=== PATIENT | male | born 1945 | race Two or more races ===

== ENCOUNTER 2016-08-02 18:49 | Inpatient (IN) | payer OTHER ==
[2016-08-02] MEDS ORDERED: IOPAMIDOL 370 (76%) 100 ML VIAL IV ONE (18:50)
[2016-08-02] MEDS ORDERED: IPRATROPIUM BROMIDE 0.5 MG/2.5 ML DOSE ONE (19:15)
[2016-08-02] MEDS ORDERED: ALBUTEROL SULFATE 5MG/ML INHALANT 20 ML BOT ONE (19:15)
[2016-08-02 19:30] LABS: ABSOLUTE NEUTROPHIL COUNT 4.6 K/mm3 (1.8-7.7); BASO % 0.2 % (0.2-1.0); EOS % 0.2 % (0.9-2.9); HEMATOCRIT 21.7 % (32.0-52.0); HEMOGLOBIN 6.6 gm/l (14.0-18.0); IMM NEUT% 0.6 % (0-1); LYMPH # 1.1 (1.0-4.8); LYMPH % 17.9 % (15-45); MEAN CELL VOLUME 82.5 fl (80.0-94.0); MEAN CORPUSCULAR HEMOGLOBIN 25.1 pg (27.0-31.0); MEAN CORPUSCULAR HGB CONC 30.4 g/dl (33.0-37.0); MEAN PLATELET VOLUME 10.7 fl (7.4-10.4); MONO # 0.5 (0.0-0.8); MONO % 8.5 % (4-12); NEUT % 72.6 % (43-75); PLATELET COUNT 271 K/mm3 (130-400); RED CELL DISTRIBUTION WIDTH 14.7 % (11.5-14.5)
[2016-08-02 19:49] LABS: ALB/GLOB RATIO 1.2 (>1.0); ALBUMIN 3.8 gm/dL (3.5-5.7); CALCIUM 9.3 mg/dL (8.6-10.3)
[2016-08-02 19:54] LABS: D-DIMER 0.92 mg/L FEU (0.20-0.50); INR 1.03; PROTHROMBIN TIME 10.8 SECONDS (9.3-11.4)
--- NOTE | 2016-08-02 20:03 | RAD ---
08/02/2016 7:58 PM CHEST-AP BEDSIDE History: Respiratory distress. Comparison: None Findings: Single AP view of the chest is obtained. The lungs are clear with out effusion or pneumothorax. The cardiomediastinal silhouette is unremarkable.. The osseous structures are intact.. Study is limited by patient breathing motion artifact. IMPRESSION: No acute intrathoracic process.
[2016-08-02] MEDS ORDERED: PANTOPRAZOLE SODIUM 40 MG VIAL IV ONE (20:04)
[2016-08-02 20:52] LABS: PLATELET ESTIMATE NORMAL (NORMAL)
[2016-08-02 20:53] LABS: ANISOCYTOSIS 1+
--- NOTE | 2016-08-02 20:58 | CT ---
INDICATION: Dyspnea, elevated d-dimer. COMPARISON: Plain films earlier on the same day. TECHNIQUE: Helical scan mode CT of the Thorax with 2 mm collimated images were obtained after uneventful intravenous contrast administration of 80 of Isovue-370. Sagittal and coronal reformations with high resolution lung algorithm images were also created at this time. Maximal intensity projection images and 3-D volumetric sequences were created at a separate, dedicated workstation. DLP: 1263.4 FINDINGS: There may be a pulmonary arterial filling defects. Within the anterior segment left lower lung on axial image 55 possible nonocclusive thrombus is present. Findings may be artifactual in nature as patient breathing motion artifact is present. No other definite areas of pulmonary embolism are noted. Dependent and atelectatic changes are identified. No pleural effusion. The central airways are widely patent. There is no axillary, mediastinal or hilar adenopathy. The heart and great vessels opacify normally. Limited evaluation of the upper abdomen demonstrates no gross abnormalities. Review of bone windows demonstrates no osteoblastic or lytic lesions. Multilevel degenerative changes are present. IMPRESSION: 1. Possible nonocclusive thrombus is identified within the left lower lobe anterior segment. Breathing motion artifact is noted which may account for this appearance. No other evidence of emboli. 2. Other incidental findings as above. Findings were called to Dr. Hatch at approximately 2053 hours on 08/02/2016.
[2016-08-02] MEDS ORDERED: SODIUM CHLORIDE 0.9% 500 ML ONE (21:14)
[2016-08-02] MEDS ORDERED: BISACODYL 5 MG TABLET.EC PO PRN (22:25)
[2016-08-02] MEDS ORDERED: BISACODYL 10 MG SUP PR PRN (22:25)
[2016-08-02] MEDS ORDERED: MAGNESIUM HYDROXIDE 30 ML UDCUP PO PRN (22:25)
[2016-08-02] MEDS ORDERED: MENTHOL/CETYLPYRD 1 EACH LOZENGE PO PRN (22:25)
[2016-08-02] MEDS ORDERED: SODIUM CHLORIDE 0.9% 100 ML IV PRN (22:25)
[2016-08-02] MEDS ORDERED: BLISTEX LIPSTICK 1 EACH TP PRN (22:25)
[2016-08-02 23:05] VITALS: BMI 52.9
[2016-08-02] MEDS: ACETAMINOPHEN 325 MG TABLET PO PRN (23:18)
[2016-08-02 23:58] LABS: FERRITIN 6.7 ng/mL (23.9-336.2)
[2016-08-03 00:03] LABS: FOLIC ACID 9.3 ng/mL (>5.9)
[2016-08-03] MEDS ORDERED: BLOOD Y PLUMSET W/CASSETTE ONE (02:30)
[2016-08-03] MEDS ORDERED: SODIUM CHLORIDE 0.9% 250 ML IV ONE (02:31)
--- NOTE | 2016-08-03 07:59 | HP ---
Carlo Sanchez [id number] : 1945 DATE OF ADMISSION: 08/02/2016 IDENTIFICATION: Mr. Sanchez is a 71-year-old followed at the [facility]. CHIEF COMPLAINT: Shortness of breath. HISTORY OF PRESENT ILLNESS: The patient is a vague historian. It is difficult to get definitive answers, but he is reporting at least a few months worth of shortness of breath. He does report associated coughing which is nonproductive and increasing weakness. He feels faint and has had hot flushes and today complains of a headache. He was seen at the [facility] on , July 29 and prescribed amoxicillin, nasal Fluticasone, and prednisone for a presumed upper respiratory infection, but this did not help his symptoms. With persistent symptoms he came to [facility] Room today where he was found to be profoundly anemic. He has been started on blood transfusion and referred to the hospitalist service. He does have a diagnosis of prostate cancer and was getting chemotherapy starting last February and his last treatment was May 07. He does not know if his treatment is completed or if he is going to receive more treatment. He had a PSA test two weeks ago, but does not know if his hemoglobin was checked at that time. REVIEW OF SYSTEMS: HEENT: Reports headache and faintness, no loss of consciousness. States that his right ear has hearing loss, tinnitus, and that they told him the eardrum was abnormal on . Respiratory: Dyspnea and nonproductive cough. Cardiac: Denies chest pain or palpitations. Gastrointestinal: Denies nausea, vomiting, or reflux symptoms. Denies diarrhea, constipation, or melana. He does have frequent bright red blood with bowel movements which he states is due to hemorrhoids. Genitourinary: He has hesitancy and frequency, no dysuria. Musculoskeletal: Generalized weakness as well as tingling in his legs and soreness all over. Constitutional: Hot flushes. No documented fever. PAST MEDICAL HISTORY: 1. Prostate cancer diagnosed last fall, as above he was receiving chemotherapy February, March, and April, but his last treatment was May 07. 2. Morbid obesity with obesity hypoventilation and obstructive sleep apnea treated with CPAP. 3. Hypertension. 4. Hearing loss. 5. Depression. 6. Restless leg syndrome. PAST SURGICAL HISTORY: Lumbar spinal surgery and hernia repair done in 1973. ALLERGIES: None known. MEDICATIONS: We are awaiting his collection from home and those will be entered into [employer]. 1. It does appear that he was prescribed amoxicillin, Fluticasone nasal spray, and prednisone just last . 2. He takes Alfuzosin. 3. Diltiazem. 4. Calcium. 5. B12. 6. Fluoxetine. HABITS: He smoked as a young man, but quit in the , rarely drinks alcohol, denies other drug use. SOCIAL HISTORY: He is disabled. Lives with his mother here in [place]. His son and daughter -in-law are supportive and were here with him this evening, but have gone home to get his CPAP and medication bottles. FAMILY HISTORY: His father of colon and stomach cancer. PHYSICAL EXAMINATION: GENERAL: This is a morbidly obese, fatigued, and ill appearing 71-year-old. VITAL SIGNS: Temperature 98.1 degrees Fahrenheit, blood pressure 113/56, pulse 56, respiratory rate 22, oxygen saturation is 100% on room air. HEENT: Pupils equal, round, and reactive. Extraocular muscles intact. Tympanic membranes are normal with good light reflex bilaterally. Oropharynx is somewhat dry. CHEST: Clear to auscultation. HEART: Regular, bradycardic. ABDOMEN: Massively obese, soft, nontender. No organomegaly appreciated. EXTREMITIES: 1+ pitting edema with good peripheral pulses. NEUROLOGIC: He is alert, oriented, and does not have focal deficits, but does seem fatigued and slow to respond to questions. RECTAL: Done in the emergency department by Dr. Hatch was Heme negative. LABORATORIES: White blood cell count 6.3, hemoglobin and hematocrit critically low at 6.6 and 21.7. Indices are microcytic, platelet count 271. INR 1.03. D-dimer elevated at 0.92. Sodium 137, potassium 3.7, chloride 106, CO2 21, BUN 16, creatinine 0.7, glucose 139. Liver enzymes are normal. Troponin I less than 0.01. B-type natiuretic peptide 99. DIAGNOSTICS: Chest x-ray is normal. CT angiogram of the chest was inadequate due to breathing artifact giving the appearance of a possible nonocclusive thrombus in the left lower lobe, but this is more likely to represent an artifact. EKG sinus bradycardia. ASSESSMENT: Mr. Sanchez is a 71-year-old with history of prostate cancer and recent chemotherapy who presents with critical anemia. He has underlying morbid obesity and hypoventilation, depression, and hypertension. PLAN: 1. Admit to med/surg. 2. Transfuse 3 units packed red blood cells. 3. Continue Alfuzosin and diltiazem, but will discontinue the amoxicillin, Fluticasone, and prednisone that were recently prescribed. 4. Anemia workup. 5. Full code status. 6. Venous thromboembolism prophylaxis with mechanical means. I do not want to anticoagulate him with his anemia. I do not think that he currently has pulmonary embolism or other venous thrombosis, just an artifact on the CT scan. 7. [facility] with [facility] for [facility] cancer, however, the anemia may be due to chemotherapy and may in fact be the reason that his chemotherapy was stopped in April although, that is unclear from the patient's vague history. JOB: [id number]
[2016-08-03 08:09] LABS: HEMATOCRIT 27.7 % (32.0-52.0); HEMOGLOBIN 8.7 gm/l (14.0-18.0); MEAN CELL VOLUME 81.7 fl (80.0-94.0); MEAN CORPUSCULAR HEMOGLOBIN 25.7 pg (27.0-31.0); MEAN CORPUSCULAR HGB CONC 31.4 g/dl (33.0-37.0); RED CELL DISTRIBUTION WIDTH 14.6 % (11.5-14.5)
[2016-08-03] MEDS: GUAIFENESIN/CODEINE 100/10 MG (5 ML UDCUP) PO PRN ×4 (08:31→20:53)
[2016-08-03] MEDS: ACETAMINOPHEN 325 MG TABLET PO PRN ×2 (08:35→17:16)
[2016-08-03 08:49] LABS: CALCIUM 9.1 mg/dL (8.6-10.3)
[2016-08-03] MEDS ORDERED: PANTOPRAZOLE 40 MG TABLET DR PO SCH (09:00)
[2016-08-03] MEDS ORDERED: ALFUZOSIN HCL 10 MG TAB.ER.24H PO SCH (09:00)
[2016-08-03] MEDS: DILTIAZEM HCL CD 240 MG CAPSULE PO SCH (09:12)
[2016-08-03] MEDS: FLUOXETINE HCL 20 MG CAPSULE PO SCH (09:12)
[2016-08-03] MEDS: DOCUSATE SODIUM 100 MG CAPSULE PO SCH ×2 (09:13→20:47)
--- NOTE | 2016-08-03 14:39 | PDOC43 ---
- Subjective Chief Complaint: weakness, cough Feels better today. Still with a bit of a cough. Some mid-epigastric abd pain. No N/V. Weakness improved. Guiac negative. Subjective: Reports Tolerating Diet Well, Reports Adequate Oral Intake, Reports Bowel Movement, Reports Cough, Reports Abdominal Pain, Denies Shortness of Breath, Denies Chest Pain, Denies Nausea, Denies Vomiting, Denies Fever, Denies Chills - Objective Vital Signs Temperature 97.6 F 08/03/16 12:00 Pulse Rate 62 08/03/16 12:00 Respiratory Rate 22 08/03/16 12:00 Blood Pressure 111/59 08/03/16 12:00 O2 Saturation by Pulse Oximetry 99 08/03/16 12:00 Oxygen Delivery Method Room Air Oxygen Flow Rate 0 Intake and Output 08/02/16 08/03/16 08/04/16 06:59 06:59 06:59 Intake Total 1095 Balance 1095 General: Alert, Oriented x3, Cooperative, No Acute Distress HEENT: Atraumatic Lungs: Clear to Auscultation Bilaterally Cardiovascular: Regular Rate and Rhythm Abdomen: Soft, Tenderness (Minimal mid-epigastric tenderness), Normal Bowel Sounds, No Rebounding, No Involuntary Guarding Laboratory 08/03/16 07:49 08/03/16 07:49 08/02/16 19:05 Iron 14 L Ferritin 6.7 L Vitamin B12 618 Folic Acid 9.3 TSH 1.97 Current Medications: Current meds reviewed in EMR. - Problems: Assessment/Plan (1) Anemia Qualifiers: Anemia type: iron deficiency Status: AcuteAssessment/Plan: Significant anemia apparently acute. Baseline H&H = 15.1 and 44.7 [facility]. Lab testing c/w Fe deficient. Guiac negative here. Last colonoscopy just 2.5 months ago on 05/14/16 with 3 polyps removed, large ext hemm noted, and no evidence of radiation procatitis. Does have some minimal mid-epigastric tenderness and was just started on prednisone last week-- strongly suspect upper GIB. Discussed with GI- will plan on EGD in AM. Recheck H&H tonight and consider further transfusion if necessary. Increase PPI tx to bid. (2) Weakness Status: AcuteAssessment/Plan: Improved s/p transfusion. (3) Cough Status: AcuteAssessment/Plan: Cough x several weeks. No history of COPD/RAD as per pt but was rx'ed prednisone last week. Elevated d-dimer but Chest CTA with significant motion artifact- possible PE noted but felt more likely to be artifact. Will check LE US to further eval for DVT/PE though seems unlikely. Cannot anticoagulate now anyway d/t possible GIB. Follow closely- may need to repeat CTA if still uncertainty. (4) BETZY (obstructive sleep apnea) Status: ChronicAssessment/Plan: At baseline. Con't usual CPAP. (5) Prostate cancer Status: ChronicAssessment/Plan: Recently completed (04/2016) tx with Leuprolide. Appears at baseline. Check PSA. (6) HTN (hypertension), benign Status: ChronicAssessment/Plan: Stable. Con't usual dilt. VTE Prophylaxis: Mechanical only. Disposition: Unknown.
[2016-08-03] MEDS: PANTOPRAZOLE SODIUM 40 MG VIAL IV SCH (14:50)
--- NOTE | 2016-08-03 16:14 | US ---
DUPLEX ULTRASOUND, BILATERAL EXTREMITIES:DUPLEX SCAN VEIN EXT BRIGIDA CLINICAL INDICATION: Elevated d-dimer. COMPARISON:none TECHNIQUE: Both grayscale imaging and Doppler interrogation with spectral analysis and color flow was performed. Ultrasound compression and flow with augmentation was also utilized, and the common femoral vein to the posterior tibial and peroneal veins were assessed. FINDINGS: Right Lower Extremity:Appropriate compressibility and flow is demonstrated in the common femoral, superficial femoral, popliteal, and peroneal and posterior tibial veins proximally. Flow with augmentation was also elicited. Left Lower Extremity:Appropriate compressibility and flow is demonstrated in the common femoral, superficial femoral, popliteal, and peroneal and posterior tibial veins proximally. Flow with augmentation was also elicited. IMPRESSION: Normal bilateral lower extremity venous Doppler examination.
[2016-08-03 17:03] LABS: HEMATOCRIT 28.4 % (32.0-52.0); HEMOGLOBIN 8.7 gm/l (14.0-18.0)
[2016-08-04] MEDS: GUAIFENESIN/CODEINE 100/10 MG (5 ML UDCUP) PO PRN ×4 (02:03→20:13)
[2016-08-04] MEDS: PANTOPRAZOLE SODIUM 40 MG VIAL IV SCH ×2 (02:03→14:00)
[2016-08-04 05:56] LABS: HEMATOCRIT 28.2 % (32.0-52.0); HEMOGLOBIN 8.6 gm/l (14.0-18.0); MEAN CELL VOLUME 81.7 fl (80.0-94.0); MEAN CORPUSCULAR HEMOGLOBIN 24.9 pg (27.0-31.0); MEAN CORPUSCULAR HGB CONC 30.5 g/dl (33.0-37.0)
[2016-08-04 06:15] LABS: CALCIUM 8.9 mg/dL (8.6-10.3)
[2016-08-04] MEDS ORDERED: PROPOFOL 20 ML IV ONE (07:43)
[2016-08-04] MEDS: FLUOXETINE HCL 20 MG CAPSULE PO SCH (09:08)
[2016-08-04] MEDS: DOCUSATE SODIUM 100 MG CAPSULE PO SCH ×2 (09:08→20:13)
[2016-08-04] MEDS: DILTIAZEM HCL CD 240 MG CAPSULE PO SCH (09:08)
--- NOTE | 2016-08-04 11:07 | PDOC43 ---
- Subjective Chief Complaint: weakness, cough Feeling better. Cough improved. Weakness improved. EGD this AM with [facility] polyp found- plan repeat EGD in OR under general anesthesia in AM. Subjective: Reports Tolerating Diet Well, Denies Shortness of Breath, Denies Chest Pain, Denies Abdominal Pain, Denies Nausea, Denies Vomiting, Denies Fever , Denies Chills - Objective Vital Signs Temperature 97.8 F 08/04/16 08:00 Pulse Rate 64 08/04/16 08:00 Respiratory Rate 18 08/04/16 08:00 Blood Pressure 156/100 08/04/16 08:00 O2 Saturation by Pulse Oximetry 94 08/04/16 08:00 Oxygen Delivery Method Room Air Oxygen Flow Rate 0 Intake and Output 08/03/16 08/04/16 08/05/16 06:59 06:59 06:59 Intake Total 1095 1200 Output Total 3650 450 Balance 1095 -2450 -450 General: Alert, Oriented x3, Cooperative, No Acute Distress Lungs: Clear to Auscultation Bilaterally Cardiovascular: Regular Rate and Rhythm Abdomen: Soft, Normal Bowel Sounds, Non-Distended, No Rebounding, No Involuntary Guarding Laboratory 08/04/16 05:30 08/04/16 05:30 Current Medications: Current meds reviewed in EMR. - Problems: Assessment/Plan (1) Anemia Qualifiers: Anemia type: iron deficiency Status: AcuteAssessment/Plan: Significant anemia apparently acute. Baseline H&H = 15.1 and 44.7 [facility]. Lab testing c/w Fe deficient. Guiac negative here. EGD this AM with large friable polyp found at [facility]. Presumed etiology of bleeding/anemia. Plan is to repeat EGD with [facility] in OR under general anesthesia in AM. Last colonoscopy just 2.5 months ago on 05/14/16 with 3 polyps removed, large ext hemm noted, and no evidence of radiation procatitis. H&H stable. Con't PPI tx bid. (2) Weakness Status: AcuteAssessment/Plan: Improved s/p transfusion. (3) Cough Status: AcuteAssessment/Plan: Cough x several weeks. No history of COPD/RAD as per pt but was rx'ed prednisone last week. Elevated d-dimer but Chest CTA with significant motion artifact- possible PE noted but felt more likely to be artifact. LE US 08/03 negative for DVT. PE appears highly unlikely, and cannot anticoagulate now anyway d/t possible GIB. Follow closely- may need to repeat CTA if still uncertainty. (4) BETZY (obstructive sleep apnea) Status: ChronicAssessment/Plan: At baseline. Con't usual CPAP. (5) Prostate cancer Status: ChronicAssessment/Plan: Recently completed (04/2016) tx with Leuprolide. Appears at baseline. Check PSA. (6) HTN (hypertension), benign Status: ChronicAssessment/Plan: Stable. Con't usual dilt. VTE Prophylaxis: Mechanical only. Disposition: Anticipate d/c 1-2 days.
[2016-08-04 13:22] LABS: HELICOBACTER PYLORII DETECTION NEGATIVE (NEGATIVE)
[2016-08-04] MEDS: DIPHENHYDRAMINE HCL 25 MG CAPSULE PO PRN (22:12)
[2016-08-05] MEDS ORDERED: PUMP TUBING ONE (00:13)
[2016-08-05] MEDS: LACTATED RINGERS 1,000 ML IV SCH ×3 (00:21→03:30)
[2016-08-05] MEDS: DIPHENHYDRAMINE HCL 25 MG CAPSULE PO PRN (00:22)
[2016-08-05] MEDS: PANTOPRAZOLE SODIUM 40 MG VIAL IV SCH (03:29)
[2016-08-05] MEDS ORDERED: LACTATED RINGERS 1,000 ML ONE (05:43)
[2016-08-05] MEDS ORDERED: IV START KIT ONE (05:43)
[2016-08-05 05:53] LABS: HEMATOCRIT 28.1 % (32.0-52.0); HEMOGLOBIN 8.6 gm/l (14.0-18.0); MEAN CELL VOLUME 83.1 fl (80.0-94.0); MEAN CORPUSCULAR HEMOGLOBIN 25.4 pg (27.0-31.0); MEAN CORPUSCULAR HGB CONC 30.6 g/dl (33.0-37.0)
[2016-08-05] MEDS ORDERED: SUCCINYLCHOLINE CHL 20 MG/ML DOSE ONE (06:55)
[2016-08-05] MEDS ORDERED: PROPOFOL 20 ML IV ONE (06:55)
[2016-08-05] MEDS ORDERED: MIDAZOLAM HCL 1 MG/ML 2ML VIAL ONE (06:55)
[2016-08-05] MEDS ORDERED: ALBUTEROL SULFATE MDI 60 PUFFS/INHALER IH ONE (07:34)
[2016-08-05] MEDS ORDERED: HYDROMORPHONE HCL 1 MG/ML SYRINGE IV PRN (07:54)
[2016-08-05] MEDS ORDERED: NALOXONE HCL 0.4 MG/ML VIAL IV PRN (07:54)
[2016-08-05] MEDS ORDERED: HYDRALAZINE HCL 20 MG/1 ML VIAL IV PRN (07:54)
[2016-08-05] MEDS ORDERED: MEPERIDINE 25 MG/ML SYRINGE IV PRN (07:54)
[2016-08-05] MEDS ORDERED: LABETALOL HCL 5 MG/ML 20ML VIAL IV PRN (07:54)
[2016-08-05] MEDS ORDERED: PROMETHAZINE HCL 25 MG/ML VIAL IM PRN (07:54)
[2016-08-05] MEDS ORDERED: ONDANSETRON 4 MG/2ML 2 ML VIAL IV PRN (07:54)
[2016-08-05] MEDS ORDERED: ATROPINE SULFATE 0.4 MG/1 ML VIAL IV PRN (07:54)
[2016-08-05] MEDS ORDERED: FENTANYL 100 MCG/2 ML VIAL IV PRN (07:54)
[2016-08-05] MEDS ORDERED: LACTATED RINGERS 1,000 ML IV SCH (08:00)
[2016-08-05] MEDS: DILTIAZEM HCL CD 240 MG CAPSULE PO SCH (11:36)
[2016-08-05] MEDS: GUAIFENESIN/CODEINE 100/10 MG (5 ML UDCUP) PO PRN (11:36)
[2016-08-05] MEDS: FLUOXETINE HCL 20 MG CAPSULE PO SCH (11:36)
[2016-08-05] MEDS: ACETAMINOPHEN 325 MG TABLET PO PRN (11:36)
[2016-08-05] MEDS: DOCUSATE SODIUM 100 MG CAPSULE PO SCH (11:37)
[2016-08-05] MEDS ORDERED: IRON SUCROSE COMPLEX 200 MG in SODIUM CHLORIDE 0.9% 100 ML IV ONE (11:45)
[2016-08-05 12:01] VITALS: BP 139/70
--- NOTE | 2016-08-05 13:34 | DS ---
Carlo Sanchez [id number] DATE OF ADMISSION: 08/02/2016 DATE OF DISCHARGE: 08/05/2016 DISCHARGE DIAGNOSES: 1. Severe iron deficiency anemia presumably due to chronic gastrointestinal blood loss. 2. Morbid obesity with a body mass index of 53. 3. Obstructive sleep apnea with chronic respiratory failure on CPAP therapy. 4. History of prostate cancer currently undergoing chemotherapy with hormonal blocking agents. 5. Shortness of breath associated with his anemia and possibly due toa viral upper respiratory infection. 6. Chronic depression. 7. Chronic essential hypertension. 8. Generalized weakness. 9. Restless leg syndrome probably due to iron deficiency. CONSULTATIONS OBTAINED DURING HOSPITALIZATION: Included a gastrointestinal consultation with Dr. Luciano Varela on 08/04/2016. PROCEDURES PERFORMED DURING THE HOSPITALIZATION: Included transfusion of 3 units of packed red blood cells between August 02 and August 03. Also an upper endoscopy was performed on 08/04/2016 for diagnostic purposes showing a large pedunculated esophageal polyp and gastritis with duodenitis. No peptic ulcer disease was identified. He had another upper endoscopy performed on August 05, this time with polypectomy performed under general anesthesia. Pathology is pending. TO SUMMARIZE THE ADMISSION AND HOSPITAL COURSE: The patient is a 71-year-old male followed by the [facility] who presented with complaints of dyspnea on exertion, cough, and shortness of breath with weakness. He had recently been treated at the [place] with amoxicillin and prednisone without significant improvement. He was evaluated in the emergency department and was hemodynamically stable. Chest x-ray was normal. CT angiogram of the chest did not show any infiltrates. B-type natiuretic peptide was normal at 99. He had a CBC showing a white count of 6.3, hemoglobin was critically low at 6.6 with a hematocrit of 21.7. His other laboratory studies were unremarkable. His mean corpuscular volume was normal at 82.5. He had iron studies performed showing a serum iron level of 14, a ferritin level of 6.7 consistent with iron deficiency. B12 level was normal at 618. Folic acid level was normal at 9.3. A TSH level was normal at 1.97. He was admitted to the hospitalist service. He was transfused. He had improvement in his symptoms following the transfusion. He had the consultation with GI as I mentioned above. His hemoglobin's were stable at the time of his discharge. He did have evidence of hemoccult positive stools during his stay, felt to be secondary to gastritis. His H-pylori test were negative and he was felt to be medically stable for discharge on August 05. PHYSICAL EXAMINATION: VITAL SIGNS: His discharge vitals showed a temperature of 98.2, pulse 55, blood pressure 113/85, respirations 16, oxygen saturation of 95% on room air. Body mass index is over 40 as I mentioned above. GENERAL: This is an obese male in no acute distress. HEENT: Unremarkable. Moist pink oral mucosa is noted. LUNGS: Clear to auscultation bilaterally. CARDIOVASCULAR: Reveals a regular rate and rhythm without a murmur. ABDOMEN: Obese, soft, nontender, nondistended with positive bowel sounds. EXTREMITIES: No peripheral edema. LABORATORY STUDIES: Done on the day of discharge included a CBC with a white count of 5.9, hemoglobin is stable at 8.6, platelet count is 246,000. Chemistry profile performed on August 04 showed a creatinine of 0.8, normal electrolytes. DISPOSITION: Good. DISCHARGE MEDICATIONS: He is prescribed: 1. Iron sulfate 325 mg every morning. 2. Prilosec 20 mg every evening at bedtime. He will resume his previous home medications which include: 1. Fluticasone propionate nasal spray two sprays in each nostril daily. 2. Uroxatral 10 mg daily. 3. Prozac 40 mg daily. 4. Cardizem CD 240 mg daily. 5. Vitamin B12 1000 mcg by mouth daily. 6. Calcium carbonate 1300 mg every morning. 7. He did get a dose of iron sucrose 200 mg intravenously prior to discharge. FOLLOW UP: Instructed to follow up with provider at the [place] [facility] sometime in the next two weeks. Dr. Luciano Varela will follow up with the patient regarding the polypectomy results and arrange for follow up as needed. JOB: [id number] CC: Dr. Luciano Varela [facility]
--- NOTE | 2016-08-06 15:09 | SURGPATH ---
[facility] [address] [place] [id number] Patient Name: GILMA KENNEDY MR#: [id number] : 1945 Gender: M Specimen #: [id number] Collected: 08/04/2016 Received: 08/05/2016 Reported: 08/06/2016 Submitting Phys: MARY GUAN Copy To Phys: GILMA LAY [facility] Addendum Present Clinical History / Pre-Operative Diagnosis: ANEMIA; RULE OUT GASTRITIS Specimen Source / Surgical Procedure Performed: ANTRAL Interpretation: ANTRUM, BIOPSIES: - CHRONIC ACTIVE GASTRITIS - NEGATIVE FOR HELICOBACTER BY IMMUNOSTAIN Electronically Signed Out Anish Mcfarland M.D. Addendum Date Reported: 09/07/2016 Signed Out Addendum Diagnosis CASE ADDITIONALLY REVIEWED --- WITH AGREEMENT OF THE DIAGNOSTIC FINDINGS. STOMACH, ANTRUM, BIOPSY: - GASTRIC OXYNTIC-TYPE AND ANTRAL-TYPE MUCOSA WITH MILDLY ACTIVE CHRONIC GASTRITIS. - NO HELICOBACTER PYLORI ORGANISMS IDENTIFIED BY IHC. Comment: All controls show appropriate reactivity. The outside diagnosis is confirmed. Performed by: Dr. Giselle Quesada at [facility]; [place] [id number] Please see complete report under separate cover. Complete report on file. aje/09/07/2016 Electronically Signed Out By Precious Harrison M.D. Anish Mcfarland M.D. Gross Description: The specimen is received in a formalin filled container labeled with the patient's name and "antral biopsy". Two cooney-reyna biopsies are 0.1 and 0.2 cm. Totally embedded in one cassette. Vito Lopes Microscopic Description: Sections show antral mucosa with an moderate chronic inflammation and occasional neutrophils. An and an and an immunochemistry, performed after examination of routine stain showsno organisms. (Analyte-specific reagents (ASR) are used in many laboratory tests necessary for standard medical care and generally do not require FDA approval. This test was developed and its performance characteristics determined by [facility]. It has not been cleared or approved by the U.S. Food and Drug Administration. [facility] is certified under the Clinical Laboratory Improvement Amendments of 1988 as qualified to perform high complexity clinical laboratory testing. All controls stain as expected.) 1: 45880, 48269 K29.50
--- NOTE | 2016-08-09 15:04 | SURGPATH ---
[facility] [address] [place] [address] Patient Name: GILMA KENNEDY MR#: [id number] : 1945 Gender: M Specimen #: [id number] Collected: 08/05/2016 Received: 08/06/2016 Reported: 08/09/2016 Submitting Phys: MARY GUAN Copy To Phys: [facility] GILMA LAY [facility] Addendum Present Clinical History / Pre-Operative Diagnosis: ANEMIA; SOB; ESOPHAGEAL POLYP Specimen Source / Surgical Procedure Performed: ESOPHAGEAL POLYP AT 36 CM HIGH PRIORITY DIAGNOSIS. REQUIRES CLINICAL ATTENTION Interpretation: ESOPHAGUS POLYP AT 36 CM: - ADENOCARCINOMA WITH SIGNET RING FEATURES - MUSCULARIS PROPRIA INVASION IDENTIFIED - HER-2/judah Protein Expression: NEGATIVE (0+) Electronically Signed Out Anish Mcfarland M.D. Addendum Date Reported: 09/07/2016 Signed Out Addendum Diagnosis CASE ADDITIONALLY REVIEWED --- WITH AGREEMENT OF THE DIAGNOSTIC FINDINGS. ESOPHAGUS, POLYP AT 36 CM, POLYPECTOMY: - INVASIVE MODERATELY TO POORLY DIFFERENTIATED ADENOCARCINOMA WITH SIGNET RING CELL AND MUCINOUS FEATURES. - THE ADENOCARCINOMA IS PRESENT AT THE CAUTERIZED RESECTION MARGIN. - THE ADENOCARCINOMA IS INVASIVE INTO AT LEAST THE MUSCULARIS MUCOSAE; SEE COMMENT. - HER-2/JUDAH PROTEIN EXPRESSION: NEGATIVE. Comment: The biopsy is composed of large fragments of a polypoid mass composed of invasive glands with areas of signet ring cells and pools of mucin. There is invasive adenocarcinoma present within muscle bundles; however, the polyp is tangentially oriented and there are submucosal ducts present within these muscle bundles. These muscle bundles are most consistent with thickened muscularis mucosae and tangential orientation of the stalk polyp. The provided Her-2/judah IHC stain is negative for overexpression within the tumor. This case received intradepartmental consultation by Dr. Rosibel Armas who concurs with the above diagnosis. Performed by: Dr. Giselle Quesada at [facility]; [place], [place] [address] Please see complete report under separate cover. Complete report on file. aje/09/07/2016 Electronically Signed Out By Owen Ahn M.D. Gross Description: The specimen is received in a formalin filled container labeled with the patient's name and "esophageal polyp at 36 cm". Two finely nodular, polypoid, red-reyna biopsy fragments are 0.8 x 0.7 x 0.5 cm and 1.7 x 1.0 x 1.0 cm. Both fragments fragment upon sectioning and are entirely submitted with the smaller fragment in cassette A and the larger fragment in cassette B. Vito Lopes Microscopic Description: Sections show a polypoid neoplasm. The surface shows villous architecture with high-grade dysplastic epithelial change. The body of the polyp shows a malignant, infiltrative pattern of single cells and glandular structures with abundant associated mucin. The malignant cells have numerous atypical mitoses, pleomorphic nuclei with prominent nucleoli, and many cells show signet-ring features. Invasion into muscularis is present. This case was also seen at daily intradepartmental pathology conference with concurrence of the attendees. Specimen adequacy: Adequate invasive tumor is present for evaluation. Fixative: 10% neutral buffered formalin. Methods: Analyte Specific Reagent anti c-erbB2 / HER2/judah (clone [id number]). Controls: High, Low, Negative HER2/judah controls are as expected. (HER2 antibodies utilized in this study were developed and their performance characteristics determined by [facility]. They have not been cleared by the FDA. The FDA has determined that such clearance or approval is not necessary. These tests should not be regarded as investigational or for research. [facility] is certified under the Clinical Laboratory Improvement Amendments of 1988 as qualified to perform high complexity clinical laboratory testing.) 1: 55550, 69853 C15.5
--- NOTE | 2016-08-12 13:24 | OP ---
Carlo KENNEDY [id number] : [id number] DATE OF ADDENDUM: August 12, 2016 ADDENDUM: PLAN: This 71-year-old male patient within the practice of Dr. Ferguson at the [facility] was hospitalized on August 02, 2016 with anemia requiring transfusion. A previous colonoscopy was reported, from the [place], to be without abnormality. Upper endoscopy was performed on August 05, 2016 and demonstrated a large polypoid mass within the distal esophagus. This could not be seen on a retroflex view from the gastric fundus. Partial polypectomy of the mass was performed. 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 The patient has been contacted by phone today and informed of this and instructed that surgical referral for further evaluation and surgical treatment is the next step. The patient has been instructed to contact his primary care physician Dr. Ferguson at the [facility] for this referral. Dr. Ferguson will provide medical follow up. Job [id number] Cc: Dr. Ferguson, [facility]
== END 2016-08-05 14:00 | disposition home or self-care (01) | DRG 378 ==
LOC: ED 18:49 → MS 21:06
PROVIDERS: ADMIT Family Medicine; ATTEND Family Medicine
PROC: 30233N1 Transfusion of Nonautologous Red Blood Cells into Peripheral Vein, Percutaneous Approach (ICD-10-PCS; 2016-08-02)
PROC: 0DB78ZX Excision of Stomach, Pylorus, Via Natural or Artificial Opening Endoscopic, Diagnostic (ICD-10-PCS; 2016-08-04)
PROC: 0DB58ZX Excision of Esophagus, Via Natural or Artificial Opening Endoscopic, Diagnostic (ICD-10-PCS; principal; 2016-08-05)
DX: K29.51 Unspecified chronic gastritis with bleeding (principal); Z68.43 Body mass index [BMI] 50.0-59.9, adult; J96.10 Chronic respiratory failure, unspecified whether with hypoxia or hypercapnia; D50.9 Iron deficiency anemia, unspecified; K92.2 Gastrointestinal hemorrhage, unspecified; E66.01 Morbid (severe) obesity due to excess calories; G47.33 Obstructive sleep apnea (adult) (pediatric); C61 Malignant neoplasm of prostate; F32.9 Major depressive disorder, single episode, unspecified; I10 Essential (primary) hypertension; R53.1 Weakness; G25.81 Restless legs syndrome